=== PATIENT | female | born 1985 | race Caucasian/White ===

== ENCOUNTER 2016-11-19 05:53 | Inpatient (IN) | payer OTHER ==
[2016-11-19] MEDS ORDERED: RINGERS SOLUTION,LACTATED 1,000 ML IV ONE (06:19)
[2016-11-19 06:54] LABS: ABSOLUTE EOSINOPHILS # (AUTO) 0.1 10^3/uL (0.0-0.6); ABSOLUTE LYMPHOCYTES (AUTO) 2.4 10^3/uL (0.5-4.7); ABSOLUTE NEUT (AUTO) 5.8 10^3/uL (1.7-8.2); BASOPHILS % (AUTO) 0.5 % (0-2); EOSINOPHILS % (AUTO) 0.6 % (0-6); HEMATOCRIT 36.5 % (36.0-47.0); HEMOGLOBIN 12.4 g/dL (12.0-15.5); HGB HCT DIFFERENCE 0.7; LYMPHOCYTES % (AUTO) 26.1 % (13-45); MEAN CORPUSCULAR HEMOGLOBIN 28.9 pg (27.0-33.4); MEAN CORPUSCULAR HGB CONC 34.1 g/dL (32.0-36.0); MEAN CORPUSCULAR VOLUME 85 fl (80-97); MONOCYTES % (AUTO) 10.5 % (3-13); SEGMENTED NEUTROPHILS % (AUTO) 62.3 % (42-78); WHITE BLOOD COUNT 9.3 10^3/uL (4.0-10.5)
[2016-11-19 07:01] LABS: APPEARANCE,URINE CLOUDY; BILIRUBIN,URINE NEGATIVE (NEGATIVE); GLUCOSE, URINE NEGATIVE (NEGATIVE); KETONES,URINE NEGATIVE (NEGATIVE); LEUKOCYTE ESTERASE,URINE MODERATE (NEGATIVE); NITRITE,URINE NEGATIVE (NEGATIVE); PROTEIN,URINE NEGATIVE (NEGATIVE); URINE SPECIFIC GRAVITY 1.008; UROBILINOGEN,URINE NEGATIVE mg/dL (<2.0)
[2016-11-19 07:16] LABS: URINE BARBITURATES SCREEN NEGATIVE; URINE METHADONE SCREEN NEGATIVE; URINE OPIATES LOW NEGATIVE; URINE PHENCYCLIDINE SCREEN NEGATIVE
[2016-11-19] MEDS ORDERED: CITRIC ACID/SODIUM CITRATE ORAL SOLN 15 ML UDCUP ONE (07:52)
[2016-11-19] MEDS ORDERED: CEFAZOLIN 2 GM/D5W RTU 2 GM/50 ML RTUPB IV ONE (07:52)
[2016-11-19] MEDS ORDERED: OXYTOCIN 10 UNIT/ML VIAL ONE (08:09)
[2016-11-19] MEDS ORDERED: ONDANSETRON HCL INJ/PF 4 MG/2 ML SDV ONE (08:09)
[2016-11-19] MEDS ORDERED: EPHEDRINE SULFATE INJ 50 MG/1 ML AMPULE ONE (08:09)
[2016-11-19] MEDS ORDERED: MIDAZOLAM 2 MG/2 ML INJ ONE (08:10)
[2016-11-19] MEDS ORDERED: FENTANYL CITRATE INJ/PF 100 MCG/2 ML AMPUL ONE (08:10)
[2016-11-19] MEDS ORDERED: OXYTOCIN/NORMAL SALINE 20 UNIT/1,000 ML RTUINJ ONE ×2 (08:57→09:53)
[2016-11-19] MEDS ORDERED: MISOPROSTOL 0.2 MG TABLET ONE (09:17)
[2016-11-19] MEDS ORDERED: OXYCODONE-ACETAMINOPHEN 5-325 MG TABLET PO PRN (09:32)
[2016-11-19] MEDS ORDERED: HYDROMORPHONE HCL INJ/PF 2 MG/ML AMPULE IV PRN (09:32)
[2016-11-19] MEDS ORDERED: PROMETHAZINE HCL INJ 25 MG/1 ML VIAL IV PRN (09:32)
[2016-11-19] MEDS ORDERED: DIPH/PERTUSS(ACELL)/TETANUS VAC/PF 0.5 ML SYR (>=10YO) IM PRN (09:32)
[2016-11-19] MEDS ORDERED: ACETAMINOPHEN 325 MG TABLET PO PRN (09:32)
[2016-11-19] MEDS ORDERED: ACETAMINOPHEN 100 ML IV PRN (09:32)
[2016-11-19] MEDS ORDERED: SIMETHICONE 80 MG TAB.CHEW PO PRN (09:32)
[2016-11-19] MEDS ORDERED: OXYTOCIN/NORMAL SALINE 20 UNIT/1,000 ML RTUINJ IV PRN (09:32)
[2016-11-19] MEDS ORDERED: MEASLES,MUMPS&RUBELLA VACC/PF 0.5 ML VIAL SUBCUT PRN (09:32)
[2016-11-19] MEDS ORDERED: ACETAMINOPHEN 100 ML IV ONE (09:53)
--- NOTE | 2016-11-19 10:38 | OPERATIVE REPORT E ---
Operative Report NAME: EDWINA VANN : 1985 AGE: 31Y DATE OF SURGERY: 11/19/2016 ROOM: LR200 PREOPERATIVE DIAGNOSES: 1. Intrauterine at 38+ weeks with spontaneous rupture of membranes. 2. History of with desire for repeat with tubal ligation. 3. Gestational thrombocytopenia. POSTOPERATIVE DIAGNOSES: 1. Intrauterine at 38+ weeks with spontaneous rupture of membranes. 2. History of with desire for repeat with tubal ligation. 3. Gestational thrombocytopenia. OPERATION PERFORMED: Repeat section with bilateral tubal ligation via Filshie clips. SURGEON: JESUS CHAHAL M.D. ANESTHESIA: Spinal. ESTIMATED BLOOD LOSS: 600 mL. FINDINGS: [place] female infant, vertex presentation. Clear amniotic fluid. Normal uterus, tubes and ovaries. Weight of the was 3270 grams or 7 pounds 3 ounces. 8 and 9. SPECIMEN TO PATHOLOGY: Placenta. DESCRIPTION OF PROCEDURE: After discussing risks, benefits and alternatives of the procedure, and obtaining informed consent, the patient was taken to the operating room where spinal anesthesia was achieved. She was positioned in the dorsal supine position with a leftward tilt. A Rojas catheter was placed and she was prepped and draped in the usual standard fashion. Pfannenstiel skin incision was made and the abdomen was entered in layers. Bladder adhesions were released with sharp dissection. A low transverse cervical incision was made. The surgeon's hand was entered into the hysterotomy incision and the vertex delivered easily. The shoulders and body delivered easily thereafter. Cord was clamped and cut. Nasopharynx and oropharynx bulb suctioned. The infant was handed to pediatrics who were present. The placenta was manually extracted. The uterus was exteriorized and cleared of all clots and debris. The hysterotomy incision was closed with 0 Monocryl in a running locked fashion. An area of oozing on the right aspect of the incision was oversewn with a an O'Manvel stitch. Excellent hemostasis was then observed. A Filshie clip was placed across the isthmic portion of each fallopian tube. The uterus, tubes and ovaries returned to the peritoneal cavity and the cavity was irrigated and hemostasis again assured. A layer of Interceed was placed over the anterior aspect of the uterus and lower uterine segment. The peritoneum was closed with 2-0 Vicryl in a pursestring fashion. The muscles were loosely reapproximated with interrupted 2-0 Vicryl. The subfascial spaces were inspected and noted to be hemostatic. The fascia was closed with #1 Vicryl. The subcutaneous spaces were irrigated and hemostasis achieved with cautery. The subcutaneous spaces were closed with 3-0 plain gut. The skin was closed in a subcuticular fashion with 3-0 Monocryl. Cytotec 800 mcg were placed per rectum to help assure good uterine tone given the patient's gestational thrombocytopenia. All sponge, needle, lap, and instrument counts were correct x2. DICTATING PHYSICIAN: JESUS CHAHAL M.D. [id number] PHY#: [id number] ID: [id number] JOB#: [id number] ACCT: [id number] cc:JESUS CHAHAL M.D. >
[2016-11-19] MEDS ORDERED: HYDROMORPHONE HCL INJ/PF 2 MG/ML AMPULE ONE (10:40)
[2016-11-19] MEDS: PRENATAL VITAMIN W-O CA NO5/FE FUMARATE/FA CAPSULE PO SCH (11:12)
[2016-11-19] MEDS ORDERED: MORPHINE SULFATE 10 MG/ML INJ ONE (11:27)
--- NOTE | 2016-11-19 12:17 | Admission Physical ---
Datetime Report Generated by CPN: 11/19/2016 12:16 CURRENT ADMISSION Chief Complaint: Suspected Ruptured Membranes Indication for Induction: Not Applicable Admit Plan: Admit to Unit; Initiate Section Protocol ALLERGIES Medication Allergies: No Medication Allergies: No Known Allergies (11/19/2016) Medication Allergies: nkda Latex: No Latex Allergies Food Allergies: none Environmental Allergies: none OBSTETRICAL HISTORY EDC: 12/01/2016 00:00 : 3 Para: 1 Term: 1 : 0 SAB: 1 IAB: 0 Ectopic: 0 Livin Cesareans: 1 VBACs: 0 Multiple Births: 0 Gestational Diabetes: No Rh Sensitization: No Incompetent Cervix: No MAEGAN: No Infertility: No ART Treatment: No Uterine Anomaly: No IUGR: No Hx Previous C/S: Yes Macrosomia: No Hx Loss/Stillborn: No PIH: No Hx : No Placenta Previa/Abruption: No Depression/PP Depression: No PTL/PROM: No Post Hemorrhage: No Current Procedures: Ultrasound Obstetrical History Comments: -2010 39 weeks C/S breech gestational HTN G2-2015 DnC G3- current SEE RECORDS Alcohol: No Marijuana : No Cocaine: No Other Illicit Drugs: No Cigarettes: Never Smoker. [id number] MEDICAL HISTORY Diabetes: No Blood Transfusion: No Pulmonary Disease (Asthma, TB): No Breast Disease: No Hypertension: No Gas Line Repairer Surgery: No Heart Disease: No Hosp/Surgery: No Autoimmune Disorder: No Anesthetic Complications: No Kidney Disease: No Abnormal Pap Smear: No Neuro/Epilepsy: No Psychiatric Disorders: Yes Other Medical Diseases: No Hepatitis/Liver Disease: No Significant Family History: No Varicosities/Phlebitis: No Trauma/Violence : No Thyroid Dysfunction: No Medical History Comments: Anxiety and depression INFECTIOUS HISTORY Gonorrhea: No Genital Herpes: No Chlamydia: No Tuberculosis: No Syphilis: No Hepatitis: No HIV/AIDS Exposure: No Rash or Viral Illness: No HPV: No PHYSICAL EXAM General: Normal HEENT: Normal Neurologic: Normal Thyroid: Deferred Heart: Normal Lungs: Normal Breast: Deferred Back: Normal Abdomen: Normal Genitourinary Exam: Normal Extremities: Normal DTRs: Normal Pelvic Type: Adequate Vital Signs: Reviewed; Within Normal Limits VAGINAL EXAM Dilatation: 0 Effacement: 0 Station: -3 MEMBRANES Membranes: Ruptured Amniotic Fluid Color: Clear FETUS A EGA: 38.2 Monitoring: External US FHR- Baseline: 135 Variability: Moderate 6-25bpm Accelerations: 15X15 Decelerations: None FHR Category: Category I Presentation: Vertex PLANS FOR LABOR AND DELIVERY Labor and Delivery: None Pain Management: Spinal Feeding Preference: Breast Benefit of Breast Feed Discussed: Yes Circumcision: N/A INFORMED CONSENT Signature: with User ID: [email or web address]
--- NOTE | 2016-11-19 12:17 | Delivery Summary ---
Del Sum A-C Datetime Report Generated by CPN: 11/19/2016 12:16 DELIVERY PERSONNEL DELIVERY PERSONNEL: [id number] Delivery Doctor:: Isidra Garcia MD Anesthesiologist:: Tamar Valentin MD ASSISTANT ART DIRECTOR:: Elio Mccormack CRNA Labor and Delivery Nurse:: Sylwia Rico RNnewspaper journalist Nurse:: Rosaline Ahn RN Hand Washer:: Dr. Ferrari Nursery Nurse:: Sara Florez RN Nursery Nurse:: Barbie Hoyt RN Statement Distribution Clerk/REFRIGERATING ENGINEER HEAD: Georgina Marsh Statement Distribution Clerk/REFRIGERATING ENGINEER HEAD: Shira Gardner, COAL CUTTER MATERNAL INFORMATION Delivery Anesthesia: Spinal (Annotations: Data stored by [facility] on behalf of user) Medications After Delivery: Pitocin Drip 20 Units/1000ml NSS; Cytotec 800mcg Per Rectum/Vagina Estimated Blood Loss (ml): 600 Maternal Complications: None LABOR SUMMARY EDC: 12/01/2016 00:00 No. Babies in Womb: 1 Attempted: No Labor Anesthesia: None LABOR INFORMATION Reason for Induction: Not Applicable Oxytocin: N/A Group B Beta Strep: positive Steroids Given: None Reason Steroids Not Administered: Not Applicable MEMBRANES Membranes Rupture Method: Spontaneous Rupture of Membranes: 11/19/2016 04:55 Length of Rupture (hr): 3.70 Amniotic Fluid Color: Clear Amniotic Fluid Amount: Small Amniotic Fluid Odor: Normal STAGES OF LABOR Stage 3 hr: 0 Stage 3 min: 1 VAGINAL DELIVERY Episiotomy: None Laceration Extension: N/A Laceration Type: None Laceration Repair: Not Applicable Sponge Count Correct: N/A Sharps Count Correct: N/A CSECTION DELIVERY Primary Indication: Repeat Elective Secondary Indication: N/A CSection Urgency: Non-Scheduled CSection Incidence: Repeat Labor: No Labor Elective: Elective CSection Incision: Lower Uterine Transverse BABY A INFORMATION Delivery Date/Time: 11/19/2016 08:37 Method of Delivery: Born in Route : No : N/A Forceps: N/A Vacuum Extraction: N/A Shoulder Dystocia : No PRESENTATION/POSITION BABY A Presentation: Cephalic Cephalic Presentation: Vertex Breech Presentation: N/A PLACENTA INFORMATION BABY A Placenta Delivery Time : 11/19/2016 08:38 Placenta Method of Delivery: Manual Removal Placenta Status: Delivered SCORES BABY A Heart Rate 1 min: >100 bpm Resp Effort 1 min: Good Cry Reflex Irritability 1 min: Cough or Sneeze or Pulls Away Muscle Tone 1 min: Active Motion Color 1 min: Blue/Pale Resuscitation Effort 1 min: Tactile Stimulation SCORE 1 MIN: 8 Heart Rate 5 min: >100 bpm Resp Effort 5 min: Good Cry Reflex Irritability 5 min: Cough or Sneeze or Pulls Away Muscle Tone 5 min: Active Motion Color 5 min: Body Cobre, Extremities Blue Resuscitation Effort 5 min: N/A SCORE 5 MIN: 9 INFORMATION BABY A Gestational Age at Delivery: 38.2 Gestational Status: Early Term- 37- 38.6 Weeks Infant Outcome : Liveborn Condition : Stable Infant Sex: Female IDENTIFICATION BABY A Verification Date/Time: 11/19/2016 10:36 ID Band Number: [id number] Mother's Name Verified: Yes RN Verifying Infant: Jaime Rico. RN/ RQuiana Lynn, RN WEIGHT/LENGTH BABY A Birthweight (gm): 3270 Infant Weight (lb): 7 Infant Weight (oz): 3 Infant Length (in): 20.00 Length (cm): 50.80 CORD INFORMATION BABY A No. Cord Vessels: 3 Nuchal Cord : N/A Cord Blood Taken: Yes-For Storage (Mom's Blood type +) Infant Suction: None ASSESSMENT BABY A Skin to Skin: Yes Skin to Skin Time (min): 5
--- NOTE | 2016-11-19 12:22 | Non Stress Test Report ---
Non Stress Test Datetime Report Generated by CPN: 11/19/2016 12:22 DEMOGRAPHIC EGA NST: 38.2 INDICATION Indication for Study: Ordered by Provider MONITORING Monitor Explained: Monitor Explained; Test Explained; Patient Verbalized Understanding Time on Monitor: 11/19/2016 06:36 Time off Monitor: 11/19/2016 08:08 NST Duration: 92 NST INTERVENTIONS NST Interventions: None Physician Notified NST: Dr Neilsen BABY A: [id number] BABY A Movement : Present Contraction Frequency : rare FHR Baseline : 125 Accelerations : 15X15 Decelerations : None Variability : Moderate 6-25bpm NST Review: Meets Criteria for Reactive NST NST Review and Verified By : Duane Lynn RN NST Results: Reactive NST REPORT Report Trigger: Send Report
[2016-11-19] MEDS: OXYCODONE-ACETAMINOPHEN 5-325 MG TABLET PO PRN ×3 (13:26→21:47)
[2016-11-19] MEDS: DOCUSATE SODIUM 100 MG CAPSULE PO SCH (17:42)
[2016-11-20] MEDS: OXYCODONE-ACETAMINOPHEN 5-325 MG TABLET PO PRN (03:03)
[2016-11-20 06:33] LABS: HEMATOCRIT 34.4 % (36.0-47.0); HEMOGLOBIN 11.6 g/dL (12.0-15.5); HGB HCT DIFFERENCE 0.4; MEAN CORPUSCULAR HEMOGLOBIN 28.8 pg (27.0-33.4); MEAN CORPUSCULAR HGB CONC 33.6 g/dL (32.0-36.0); MEAN CORPUSCULAR VOLUME 86 fl (80-97); RED BLOOD COUNT 4.03 10^6/uL (3.72-5.28); RED CELL DISTRIBUTION WIDTH 14.3 % (11.5-14.0); WHITE BLOOD COUNT 11.8 10^3/uL (4.0-10.5)
[2016-11-20] MEDS ORDERED: OXYCODONE HCL IR 5 MG TABLET PO PRN (07:50)
[2016-11-20] MEDS: PRENATAL VITAMIN W-O CA NO5/FE FUMARATE/FA CAPSULE PO SCH (09:05)
[2016-11-20] MEDS: DOCUSATE SODIUM 100 MG CAPSULE PO SCH ×2 (09:05→18:30)
[2016-11-20] MEDS: OXYCODONE HCL IR 5 MG TABLET PO PRN ×3 (09:11→19:57)
--- NOTE | 2016-11-20 10:23 | PDOC PROGRESS REPORT ---
Subjective-OB Subjective: Post Delivery Day:1 31 year old. Denies any needs at this time, states lochia is stable, pain moderately well controlled, voiding without difficulty, not yet passing gas, tolerating diet. Physical Exam (OB) Vital Signs: Temp Pulse Resp BP Pulse Ox 98.2 F 69 16 130/79 H 100 11/20/16 07:57 11/20/16 07:57 11/20/16 07:57 11/20/16 07:57 11/20/16 07:57 Intake & Output 11/19/16 11/20/16 11/21/16 06:59 06:59 06:59 Intake Total 2665 Output Total 2500 Balance 165 Weight 94.347 kg - Dressing Removed: No - Opsite D&I Incision: Dressing Closure Type: Sutures - Lochia Lochia Amount: Small 10-25 ml Lochia Color: Rubra/Red - Abdomen Description: Tender, Soft Hernia Present: No Fundal Description: Firm, Midline Fundal Height: u/u - u/2 Objective-Diagnostic Laboratory: 11/20/16 06:06 11/20/16 06:06 WBC 11.8 H RBC 4.03 Hgb 11.6 L Hct 34.4 L MCV 86 MCH 28.8 MCHC 33.6 RDW 14.3 H Plt Count 100 L Assessment and Plan(PN) - Assessment and Plan (1) Gestational thrombocytopenia Qualifiers: Trimester: third trimester Qualified Code(s): O99.113 - Other diseases of the blood and blood-forming organs and certain disorders involving the immune mechanism complicating , third trimester; D69.6 - Thrombocytopenia, unspecified Is this a current diagnosis for this admission?: Yes Plan: repeat cbc in am (2) S/P repeat low transverse Is this a current diagnosis for this admission?: Yes Plan: routine pp care - Time Spent with Patient Time with patient: Less than 15 minutes Critical Time spent with patient: Less than 15 minutes Medications reviewed and adjusted accordingly: Yes - Disposition Anticipated Discharge: Home Within: within 24 hours
[2016-11-20] MEDS ORDERED: MORPHINE SULFATE 10 MG/ML INJ ONE (12:49)
[2016-11-20] MEDS: SIMETHICONE 80 MG TAB.CHEW PO SCH ×2 (18:30→22:10)
[2016-11-21 06:26] LABS: HEMATOCRIT 32.9 % (36.0-47.0); HEMOGLOBIN 11.4 g/dL (12.0-15.5); HGB HCT DIFFERENCE 1.3; MEAN CORPUSCULAR HEMOGLOBIN 29.3 pg (27.0-33.4); MEAN CORPUSCULAR HGB CONC 34.6 g/dL (32.0-36.0); MEAN CORPUSCULAR VOLUME 85 fl (80-97); RED BLOOD COUNT 3.88 10^6/uL (3.72-5.28); WHITE BLOOD COUNT 11.2 10^3/uL (4.0-10.5)
[2016-11-21 06:45] LABS: ALANINE AMINOTRANSFERASE 24 U/L (9-52); ALBUMIN 2.8 g/dL (3.5-5.0); ALKALINE PHOSPHATASE 180 U/L (38-126); ANION GAP 6 (5-19); ASPARTATE AMINO TRANSFERASE 22 U/L (14-36); BILIRUBIN,DIRECT 0.3 mg/dL (0.0-0.4); BILIRUBIN,TOTAL 0.5 mg/dL (0.2-1.3); BLOOD UREA NITROGEN 5 mg/dL (7-20); CALCIUM 8.8 mg/dL (8.4-10.2); CARBON DIOXIDE 27 mmol/L (22-30); CHLORIDE 103 mmol/L (98-107); CREATININE RESULT 0.54 mg/dL (0.52-1.25); GLUCOSE 92 mg/dL (75-110); POTASSIUM 3.8 mmol/L (3.6-5.0); SODIUM 136.4 mmol/L (137-145); TOTAL PROTEIN 5.2 g/dL (6.3-8.2)
[2016-11-21] MEDS ORDERED: IBUPROFEN 800 MG TABLET PO ONE (08:00)
[2016-11-21 08:43] VITALS: BP 134/75
[2016-11-21] MEDS: PRENATAL VITAMIN W-O CA NO5/FE FUMARATE/FA CAPSULE PO SCH (09:01)
[2016-11-21] MEDS: DOCUSATE SODIUM 100 MG CAPSULE PO SCH (09:02)
[2016-11-21] MEDS: SIMETHICONE 80 MG TAB.CHEW PO SCH (09:02)
--- NOTE | 2016-11-21 10:27 | PDOC PROGRESS REPORT ---
Subjective-OB Subjective: Post Delivery Day: 31 year old. Denies any needs at this time doing well, ready to go home, feeling better today, not passing gas, eting well , voiding, Mylicon helps alot Physical Exam (OB) Vital Signs: Temp Pulse Resp BP Pulse Ox 98.4 F 90 16 134/75 H 98 11/21/16 08:01 11/21/16 08:01 11/21/16 08:01 11/21/16 08:01 11/21/16 08:01 Intake & Output 11/20/16 11/21/16 11/22/16 06:59 06:59 06:59 Intake Total 2665 1000 Output Total 2500 Balance 165 1000 Weight 94.347 kg - Dressing Removed: Yes Incision: Dressing, Well Approximated Closure Type: Surgical Glue - Lochia Lochia Amount: Scant < 10 ml Lochia Color: Rubra/Red - Abdomen Description: Tender, Soft Hernia Present: No Fundal Description: Firm, Midline Fundal Height: u/u - u/2 Objective-Diagnostic Laboratory: 11/21/16 05:50 11/21/16 05:50 11/21/16 11/21/16 05:50 05:50 WBC 11.2 H RBC 3.88 Hgb 11.4 L Hct 32.9 L MCV 85 MCH 29.3 MCHC 34.6 RDW 14.0 Plt Count 115 L Sodium 136.4 L Potassium 3.8 Chloride 103 Carbon Dioxide 27 Anion Gap 6 BUN 5 L Creatinine 0.54 Est GFR ( Amer) > 60 Est GFR (Non-Af Amer) > 60 Glucose 92 Calcium 8.8 Total Bilirubin 0.5 AST 22 ALT 24 Alkaline Phosphatase 180 H Total Protein 5.2 L Albumin 2.8 L Assessment and Plan(PN) - Assessment and Plan (1) S/P repeat low transverse Is this a current diagnosis for this admission?: Yes (2) Gestational thrombocytopenia Qualifiers: Trimester: third trimester Qualified Code(s): O99.113 - Other diseases of the blood and blood-forming organs and certain disorders involving the immune mechanism complicating , third trimester; D69.6 - Thrombocytopenia, unspecified Is this a current diagnosis for this admission?: Yes - Time Spent with Patient Time with patient: Less than 15 minutes Medications reviewed and adjusted accordingly: Yes - Disposition Anticipated Discharge: Home Within: Other - home today
--- NOTE | 2016-11-21 10:31 | PDOC DISCHARGE SUMMARY ---
Final Diagnosis Discharge Date: 11/21/16 - Final Diagnosis (1) S/P repeat low transverse Is this a current diagnosis for this admission?: Yes (2) Gestational thrombocytopenia Is this a current diagnosis for this admission?: Yes Discharge Data - Discharge Medication Home Medications: Prenat 115/Iron Fum/Folic/Dss [ 19 Tablet] 1 each PO DAILY 11/19/16 Sertraline HCl [Zoloft 50 mg Tablet] 50 mg PO DAILY 11/19/16 Oxycodone HCl [Oxy-Ir 5 mg Tablet] 5 mg PO Q4HP PRN #30 tablet 11/21/16 Gestational Age: 39 Reason(s) for Admission: Ceasarean Section-Repeat, Tubal Ligation Procedures: NST, Ultrasound Intrapartum Procedure(s): : Low Cervical, Transverse - Ransom Data Baby 1 Female Home with Mother: Yes Complications: No - Diagnosis Test Laboratory: Temp Pulse Resp BP Pulse Ox 98.4 F 90 16 134/75 H 98 11/21/16 08:01 11/21/16 08:01 11/21/16 08:01 11/21/16 08:01 11/21/16 08:01 11/19/16 11/19/16 11/20/16 06:05 06:28 06:06 RBC 4.30 4.03 Hgb 12.4 11.6 L Hct 36.5 34.4 L Urine Opiates Screen NEGATIVE 11/21/16 05:50 RBC 3.88 Hgb 11.4 L Hct 32.9 L Urine Opiates Screen - Discharge information/Instructions Discharge Activity: Activity As Tolerated, Balance Activity w/Rest, No Lifting Over 10 Pounds, No Lifting/Push/Pulling, Pelvic Rest Discharge Diet: As Tolerated, Regular Disposition: HOME, SELF-CARE Follow [facility] with: [facility] in: 1, Weeks
[2016-11-21] MEDS ORDERED: BISACODYL 10 MG SUPP.RECT PR ONE (11:15)
[2016-11-21] MEDS ORDERED: IBUPROFEN 800 MG TABLET PO SCH (14:00)
== END 2016-11-21 13:01 | disposition home or self-care (01) | DRG 765 ==
LOC: LC 05:53 → LR 06:15 → 2S 12:05
PROVIDERS: ADMIT Specialist; ATTEND Specialist
PROC: 10D00Z1 Extraction of Products of Conception, Low, Open Approach (ICD-10-PCS; principal; 2016-11-19)
PROC: 0UL70CZ Occlusion of Bilateral Fallopian Tubes with Extraluminal Device, Open Approach (ICD-10-PCS; 2016-11-19)
PROC: 4A1HXCZ Monitoring of Products of Conception, Cardiac Rate, External Approach (ICD-10-PCS; 2016-11-19)
DX: O34.211 Maternal care for low transverse scar from previous cesarean delivery (principal); O99.12 Other diseases of the blood and blood-forming organs and certain disorders involving the immune mechanism complicating childbirth; D69.59 Other secondary thrombocytopenia; O99.344 Other mental disorders complicating childbirth; F41.9 Anxiety disorder, unspecified; F32.9 Major depressive disorder, single episode, unspecified; Z3A.39 39 weeks gestation of pregnancy; Z37.0 Single live birth; Z30.2 Encounter for sterilization
CPT/HCPCS: 1961; 36415; 80053; 80307; 81005; 85025; 85027; 86592; 86850; 86900; 86901; 88307; 94799; C1765; J0131; J0690; J1170; J2250; J2270; J2405; J2590; J3010; J3490